=== PATIENT | male | born 1980 | race Hispanic/Latino ===

== ENCOUNTER 2018-10-23 16:40 | Emergency (ER) | payer BC ==
[~2018-10-23] VITALS: Ht 165.1 cm; Wt 69.4 kg
--- OUTSIDE RECORDS SUMMARY | 2018-10-23 16:43 | XMS REPORT | Summary of Care ---
Author Author ESTEBAN GRANDE M.D. Organization Unknown Address Unknown Phone Unavailable Care Team Providers Care Java Portal Developer Name Role Phone ESTEBAN GRANDE M.D. Unavailable Unavailable CHRISTIANE PARKER AKESTEBAN Unavailable Unavailable Unavailable Unavailable Functional Status Name Dates Details Functional status health issues are not documented Status: Name Dates Details Cognitive status health issues are not documented Status: Problems Name Dates Details Diabetes (250.00, E11.9) Status: Active Fatty liver (571.8, K76.0) Status: Active Acute sinusitis (461.9, J01.90) Status: Active Current use of steroid medication (V58.65, Z79.52) Status: Active Chronic sinusitis (473.9, J32.9) Status: Active Nasal septal perforation (478.19, J34.89) Status: Active Medications Name Dates Details metFORMIN HCl TABS Active Vitamin B-12 TABS * Refills: 0 Active Omeprazole 20 MG Oral Capsule Delayed Release TAKE 1 CAPSULE DAILY EVERY MORNING BEFORE BREAKFAST. * Quantity: 14 Refills: 0 ESTEBAN GRANDE M.D. * Start : 27-Aug-2018 Active Ciprofloxacin HCl - 500 MG Oral Tablet Take 1 tablet PO twice per day until finished * Quantity: 28 Refills: 0 ESTEBAN GRANDE M.D. * Start : 10-Sep-2018 Active Allergies and Adverse Reactions Name Dates Details No Known Allergies (Allergy) Status: Active Procedures Procedure Dates Details Procedures not documented Immunization Name Dates Details Immunizations not documented Family History Name Dates Details No pertinent family history (V49.89, Z78.9) Comments: Other Status: Active Social History Name Dates Details Unknown if ever smoked Vital Signs Date Test Result Details 5-Ths-[id number]:00 Weight 152.25 lb Status: [id number] BP Systolic 134 mm[Hg] Status: BP Diastolic 89 mm[Hg] Status: Weight 155.5625 lb Status: Heart Rate 84 /min Status: Results Date Description Value Details Results not documented Plan of Care Name Dates Details Planned Observations Planned Goals not documented Planned Encounters Appointment; ESTEBAN GRANDE M.D. On: 16-Sep-2018 13:00 Interventions Provided Medication Changes* Ciprofloxacin HCl - 500 MG Oral Tablet - Start Plan* 38 yo M with h/o DM, fatty liver, cocaine use, now with nasal septal perforation, acute sinusitis, crusting; no mass on pathology * - reviewed path and cultures * - debrided bilateral nasal cavities under endoscopy * - will start cipro as this works better for his cultures * - more aggressive nasal washes * - RTC 1 week Instructions Name Dates Details Instructions not documented Encounters Appointment; MARGUERITE SIDHU D.O. Encounter Diagnosis: Problem not documented On: 17-Mar-2018 14:00 Appointment; ESTEBAN GRANDE M.D. Encounter Diagnosis: Problem not documented On: 26-Aug-2018 13:00 Appointment; ESTEBAN GRANDE M.D. Encounter Diagnosis: Problem not documented On: 10-Sep-2018 9:15
--- OUTSIDE RECORDS SUMMARY | 2018-10-23 16:43 | XMS REPORT ---
Author Author [facility] Address Unknown Phone Unavailable Care Team Providers Care Geotechnical Operating Engineer Name Role Phone Unavailable Unavailable Problems This patient has no known problems. Allergies, Adverse Reactions, Alerts This patient has no known allergies or adverse reactions. Medications This patient has no known medications.
[2018-10-23 18:13] VITALS: BP 139/96
== END 2018-10-23 18:16 | disposition home or self-care (01) ==
LOC: FSED 16:40
DX: R50.9 Fever, unspecified (principal); R05 Cough; J20.9 Acute bronchitis, unspecified; J30.2 Other seasonal allergic rhinitis
CPT/HCPCS: 99283